=== PATIENT | female | born 1970 | race Caucasian/White ===

== ENCOUNTER 2016-10-06 12:27 | Outpatient (CLI) | payer MEDICARE | END 2016-10-06 12:28 | disposition critical access hospital (66) | LOC: EMS 12:27 | PROVIDERS: ATTEND Surgery | DX: R45.851 Suicidal ideations (principal); R46.89 Other symptoms and signs involving appearance and behavior | CPT/HCPCS: A0425; A0429 ==

== ENCOUNTER 2016-10-06 13:05 | Emergency (ER) | payer MEDICAID, MEDICARE ==
[2016-10-06] MEDS ORDERED: HALOPERIDOL 5 MG/ML VIAL IVP ONE (13:24)
[2016-10-06] MEDS ORDERED: LORazepam 2 MG/ML SYRINGE IVP STA (13:24)
[2016-10-06] MEDS ORDERED: SODIUM CHLORIDE 0.9% 1,000 ML IV ONE (13:24)
--- NOTE | 2016-10-06 13:26 | ED Physician Documentation ---
PD HPI MHE - Stated complaint Stated Complaint: SI - Chief complaint Chief Complaint: MHE - History obtained from History obtained from: Patient, EMS - History of Present Illness Primary symptom: Other (Brought in by ambulance, it seems that she has been using methamphetamines. She says that her brother is making her smoking and is cooking in their kitchen. There is a report prehospital of suicidal ideation but she denies this to me. She is quite agitated though but cooperative.) Review of Systems Ten Systems: 10 systems reviewed and negative Constitutional: denies: Fever, Chills GI: denies: Abdominal Pain, Nausea, Vomiting : denies: Dysuria, Frequency PD PAST MEDICAL HISTORY - Past Medical History Past Medical History: Yes Psych: Bipolar disorder, ADD/ADHD - Past Surgical History Past Surgical History: No Ortho: Spine surgery (cervical) - Present Medications Home Medications: Ambulatory Orders Medication Instructions Recorded Confirmed Divalproex Sodium [Divalproex 500 mg PO QPM 10/24/14 10/24/14 Sodium ER] Risperidone 1 mg PO QPM 10/24/14 10/24/14 traZODone [Desyrel] 50 mg ORAL DAILY PRN 10/24/14 10/24/14 Dextroamphetamine/Amphetamine 10 mg PO DAILY 10/06/16 10/06/16 [Adderall 10 mg Tablet] traZODone [Desyrel] 50 mg PO DAILY 10/06/16 10/06/16 - Allergies Allergies/Adverse Reactions: Allergies Allergy/AdvReac Type Severity Reaction Status Date / Time No Known Drug Allergies Allergy Unverified 10/06/16 13:10 - Social History Does the pt smoke?: Yes Smoking Status: Current every day smoker Does the pt drink ETOH?: Yes Does the pt have substance abuse?: Yes Substance Use and Type: Marijuana - Family History Family history: reports: Non contributory PD ED PE NORMAL - Vitals Vital signs reviewed: Yes - General General: Other (She seems agitated and is cooperative though but with some flight of ideas and delusions.) - HEENT HEENT: PERRL, EOMI - Neck Neck: Supple, no meningeal sign, No bony TTP - Cardiac Cardiac: RRR, No murmur - Respiratory Respiratory: No respiratory distress, Clear bilaterally - Abdomen Abdomen: Soft, Non tender - Derm Derm: Normal color, Warm and dry - Extremities Extremities: No edema, No calf tenderness / cord - Neuro Neuro: No motor deficit, No sensory deficit, Normal speech Results - Vitals Vitals: Vital Signs - 24 hr 10/06/16 10/06/16 10/06/16 13:06 14:23 15:53 Temperature 36.7 C Heart Rate 81 80 78 Respiratory 18 15 Rate Blood Pressure 132/97 H O2 Saturation 97 97 98 10/06/16 17:19 Temperature Heart Rate 75 Respiratory 14 Rate Blood Pressure 109/63 O2 Saturation 97 Oxygen O2 Source Room air - Labs Labs: Laboratory Tests 10/06/16 10/06/16 10/06/16 13:32 13:32 13:40 WBC 16.3 H RBC 3.84 L Hgb 13.1 Hct 38.3 MCV 99.7 H MCH 34.2 H MCHC 34.3 RDW 12.8 Plt Count 445 MPV 6.6 L Neut # 12.9 H Lymph # 2.1 [place] # 1.1 H Eos # 0.1 Baso # 0.1 Absolute Nucleated RBC 0.00 Nucleated RBCs 0.0 Sodium Potassium Chloride Carbon Dioxide Anion Gap BUN Creatinine Estimated GFR (MDRD) Glucose Calcium Magnesium Total Bilirubin AST ALT Alkaline Phosphatase Total Creatine Kinase Total Protein Albumin Globulin Albumin/Globulin Ratio Lipase Urine Color YELLOW Urine Clarity CLEAR Urine pH 5.5 Ur Specific [place] 1.025 Urine Protein NEGATIVE Urine Glucose (UA) NEGATIVE Urine Ketones 15 H Urine Occult Blood TRACE-INTA Urine Nitrite NEGATIVE Urine Bilirubin NEGATIVE Urine Urobilinogen 0.2 (NORMAL) Ur Leukocyte Esterase NEGATIVE Ur Microscopic Review NOT INDICATED Urine Culture Comments NOT INDICATED Urine HCG, Qual NEGATIVE Salicylates Urine Opiates Screen NEGATIVE Ur Oxycodone Screen NEGATIVE Urine Methadone Screen NEGATIVE Ur Propoxyphene Screen NEGATIVE Acetaminophen Ur Barbiturates Screen NEGATIVE Ur Tricyclics Screen NEGATIVE Ur Phencyclidine Scrn NEGATIVE Ur Amphetamine Screen NEGATIVE U Methamphetamines Scrn POSITIVE H U Benzodiazepines Scrn NEGATIVE Urine Cocaine Screen POSITIVE H U Cannabinoids Screen POSITIVE H Ethyl Alcohol 10/06/16 13:40 WBC RBC Hgb Hct MCV MCH MCHC RDW Plt Count MPV Neut # Lymph # [place] # Eos # Baso # Absolute Nucleated RBC Nucleated RBCs Sodium 138 Potassium 3.8 Chloride 105 Carbon Dioxide 23 Anion Gap 10.0 BUN 17 Creatinine 0.8 Estimated GFR (MDRD) 77 L Glucose 94 Calcium 9.3 Magnesium 2.1 Total Bilirubin 1.2 H AST 38 ALT 24 Alkaline Phosphatase 70 Total Creatine Kinase 565 H Total Protein 7.6 Albumin 4.7 Globulin 2.9 Albumin/Globulin Ratio 1.6 Lipase 28 Urine Color Urine Clarity Urine pH Ur Specific [place] Urine Protein Urine Glucose (UA) Urine Ketones Urine Occult Blood Urine Nitrite Urine Bilirubin Urine Urobilinogen Ur Leukocyte Esterase Ur Microscopic Review Urine Culture Comments Urine HCG, Qual Salicylates < 6.0 Urine Opiates Screen Ur Oxycodone Screen Urine Methadone Screen Ur Propoxyphene Screen Acetaminophen < 10 L Ur Barbiturates Screen Ur Tricyclics Screen Ur Phencyclidine Scrn Ur Amphetamine Screen U Methamphetamines Scrn U Benzodiazepines Scrn Urine Cocaine Screen U Cannabinoids Screen Ethyl Alcohol < 5.0 PD MEDICAL DECISION MAKING - ED course ED course: 46-year-old woman presents with psychosis and disorganized behavior, but there is clearly ongoing methamphetamine abuse to which she agrees. She was given some medication, Ativan and Haldol IV and slept for several hours. On awakening she was much more cogent and reasonable, continued to deny suicidal ideation. Wanted to leave. She had been seen by the social scientist and declined respite care or social detox. Departure - Departure Disposition: Against Medical Advice Clinical Impression: Methamphetamine abuse Condition: Stable
[2016-10-06] MEDS ORDERED: LORazepam 2 MG/ML SYRINGE ONE (13:44)
[2016-10-06] MEDS ORDERED: HALOPERIDOL 5 MG/ML VIAL ONE (13:45)
[2016-10-06 14:04] LABS: PH,URINE 5.5 PH (5.0-7.5)
[2016-10-06 14:06] LABS: BASOPHILS # (AUTO) 0.1 10^3/uL (0.0-0.1); BASOPHILS % (AUTO) 0.5 %; EOSINOPHILS # (AUTO) 0.1 10^3/uL (0.0-0.7); EOSINOPHILS % (AUTO) 0.7 %; HCT - HEMATOCRIT 38.3 % (37.0-47.0); HGB - HEMOGLOBIN 13.1 g/dL (12.0-16.0); LYMPHOCYTES # (AUTO) 2.1 10^3/uL (1.5-3.5); LYMPHOCYTES % (AUTO) 12.9 %; MEAN CORPUSCULAR HEMOGLOBIN 34.2 pg (27.0-31.0); MEAN CORPUSCULAR HGB CONC 34.3 g/dL (32.0-36.0); MEAN CORPUSCULAR VOLUME 99.7 fL (81.0-99.0); MEAN PLATELET VOLUME 6.6 fL (7.9-10.8); MONOCYTES # (AUTO) 1.1 10^3/uL (0.0-1.0); MONOCYTES % (AUTO) 6.9 %; NEUTROPHILS # (AUTO) 12.9 10^3/uL (1.5-6.6); RED BLOOD COUNT 3.84 10^6/uL (4.20-5.40); RED CELL DISTRIBUTION WIDTH 12.8 % (12.0-15.0); UNCORRECTED WHITE BLOOD COUNT 16.3 x10^3/uL; WHITE BLOOD COUNT 16.3 x10^3/uL (4.8-10.8)
[2016-10-06 14:15] LABS: UA CHARGE (STRIP ONLY) YES; UR CULTURE IF IND NOT INDICATED
[2016-10-06 14:16] LABS: BILIRUBIN,URINE NEGATIVE (NEGATIVE); HCG UR QUAL NEGATIVE
[2016-10-06 14:24] LABS: ALBUMIN/GLOBULIN RATIO 1.6 (1.0-2.2); BILIRUBIN,TOTAL 1.2 mg/dL (0.2-1.0); BUN - BLOOD UREA NITROGEN 17 mg/dL (6-20); CALCIUM 9.3 mg/dL (8.5-10.3); CARBON DIOXIDE - CO2 23 mmol/L (21-32); CHLORIDE 105 mmol/L (101-111); CREATININE 0.8 mg/dL (0.4-1.0); GFR - MDRD 77 (>89); GLUCOSE 94 mg/dL (70-100); LIPASE 28 U/L (22-51); MAGNESIUM 2.1 mg/dL (1.7-2.8); POTASSIUM 3.8 mmol/L (3.5-5.0); SALICYLATE < 6.0 mg/dL; SODIUM 138 mmol/L (135-145); TOTAL PROTEIN 7.6 g/dL (6.7-8.2)
[2016-10-06 14:25] LABS: ACETAMINOPHEN < 10 ug/mL (10-30)
[2016-10-06 17:21] VITALS: BP 109/63
== END 2016-10-06 18:22 | disposition left against medical advice (07) ==
LOC: EDUNIT# → ED 13:05
DX: F15.10 Other stimulant abuse, uncomplicated (principal); F17.200 Nicotine dependence, unspecified, uncomplicated; F31.9 Bipolar disorder, unspecified; F90.9 Attention-deficit hyperactivity disorder, unspecified type
CPT/HCPCS: 36415; 80053; 80306; 80307; 81003; 81025; 82550; 83690; 83735; 85025; 96374; 96375; 99283; 99284; G0480; J2060; 80320; 80329; 81001; 87086

== ENCOUNTER 2019-11-07 23:49 | Emergency (ER) | payer MEDICARE ==
--- NOTE | 2019-11-07 23:53 | ED Physician Documentation ---
PD HPI MHE - Stated complaint Stated Complaint: MHE - History obtained from History obtained from: Patient (unable to provide useful or reliable contribution to HPI/ROS due to odd behavior) - History of Present Illness Primary symptom: Aggressive behavior Timing - onset: Unknown Similar symptoms before: Diagnosis ([facility] records indicate previous [facility] ED visits with similar presentation; outcome of ED visit has included T+R as well as transfer to inpatient mental health facility) - Additional information Additional information: brought in by police. Patient is rambling and exhibits odd behavior and affect, at times angry and loud; she tells me she was walking home from someone's house, got lost and suddenly there were cars coming at her. She says the police were then there arresting her. It took several minutes for her to communicate this information to me, as she was including odd, extensive, superfluous details such as spelling people's names, telling me specific street addresses. She includes profanity and racial slurs in what is a particularly long, run-on sentence that only stopped when I interrupted her. Per police, there were 911 calls reporting someone was jumping in front of cars on [facility] [facility]. The officer says that when he drove to the scene, the patient jumped in front of his car as well. She arrives in handcuffs to ED. Review of Systems Unable to obtain: [place] PD PAST MEDICAL HISTORY - Past Medical History Past Medical History: Yes Psych: Bipolar disorder, ADD/ADHD - Past Surgical History Past Surgical History: No Ortho: Spine surgery (cervical) - Present Medications Home Medications: Ambulatory Orders Medication Instructions Recorded Confirmed Divalproex Sodium [Divalproex 500 mg PO QPM 10/24/14 10/24/14 Sodium ER] risperiDONE [Risperidone] 1 mg PO QPM 10/24/14 10/24/14 traZODone [Desyrel] 50 mg ORAL DAILY PRN 10/24/14 10/24/14 Dextroamphetamine/Amphetamine 10 mg PO DAILY 10/06/16 10/06/16 [Adderall 10 mg Tablet] traZODone [Desyrel] 50 mg PO DAILY 10/06/16 10/06/16 - Allergies Allergies/Adverse Reactions: Allergies Allergy/AdvReac Type Severity Reaction Status Date / Time No Known Drug Allergies Allergy Unverified 10/06/16 13:10 - Social History Does the pt smoke?: Yes Smoking Status: Current every day smoker Does the pt drink ETOH?: Yes Does the pt have substance abuse?: Yes Substance Use and Type: Other (UDS on previous visit include negative UDS, as well as UDS positive for cocaine, methamphetamines, and cannabinoids. she denies using drugs tonight when I ask) PD ED PE NORMAL - Vitals Vital signs reviewed: Yes - General General: Well developed/nourished, Other (unable to ascertain orientation answers due to odd, rambling answers) - HEENT HEENT: Atraumatic, PERRL, EOMI - Cardiac Cardiac: No murmur - Respiratory Respiratory: No respiratory distress, Clear bilaterally - Abdomen Abdomen: Soft, Non tender - Derm Derm: Normal color, Warm and dry PD ED PE EXPANDED - General General: Alert, No acute distress - Cardiac Cardiac: Tachy, Regular Rhythm - Psych Psych: Agitated (agitated at times during exam, and at one point she is trying to get her handcuffed wrists under her feet so as to bring her wrists in front of her. ), Pressured speech Results - Vitals Vitals: Vital Signs - 24 hr 11/07/19 23:52 Temperature 36.8 C Heart Rate 107 H Respiratory 24 Rate Blood Pressure 141/99 H O2 Saturation 98 Oxygen O2 Source Room air - Labs Labs: Laboratory Tests 11/07/19 11/08/19 11/08/19 23:53 00:23 00:33 WBC 12.2 H RBC 3.79 L Hgb 13.3 Hct 38.0 MCV 100.3 H MCH 35.1 H MCHC 35.0 RDW 12.6 Plt Count 401 MPV 8.7 Neut # (Auto) 8.4 H Lymph # (Auto) 2.5 [place] # (Auto) 1.0 Eos # (Auto) 0.1 Baso # (Auto) 0.1 Absolute Nucleated RBC 0.00 Nucleated RBC % 0.0 Sodium Potassium Chloride Carbon Dioxide Anion Gap BUN Creatinine Estimated GFR (MDRD) Glucose POC Whole Bld Glucose 119 H Calcium Total Bilirubin AST ALT Alkaline Phosphatase Total Protein Albumin Globulin Albumin/Globulin Ratio Lipase Salicylates Urine Opiates Screen NEGATIVE Ur Oxycodone Screen NEGATIVE Urine Methadone Screen NEGATIVE Ur Propoxyphene Screen NEGATIVE Acetaminophen Ur Barbiturates Screen NEGATIVE Ur Tricyclics Screen NEGATIVE Ur Phencyclidine Scrn NEGATIVE Ur Amphetamine Screen NEGATIVE U Methamphetamines Scrn NEGATIVE U Benzodiazepines Scrn NEGATIVE Urine Cocaine Screen NEGATIVE U Cannabinoids Screen POSITIVE H Ethyl Alcohol 11/08/19 00:33 WBC RBC Hgb Hct MCV MCH MCHC RDW Plt Count MPV Neut # (Auto) Lymph # (Auto) [place] # (Auto) Eos # (Auto) Baso # (Auto) Absolute Nucleated RBC Nucleated RBC % Sodium 136 Potassium 3.4 L Chloride 102 Carbon Dioxide 23 Anion Gap 11.0 BUN 21 H Creatinine 0.9 Estimated GFR (MDRD) 66 L Glucose 119 H POC Whole Bld Glucose Calcium 9.6 Total Bilirubin 0.6 AST 72 H ALT 35 Alkaline Phosphatase 68 Total Protein 7.5 Albumin 4.4 Globulin 3.1 Albumin/Globulin Ratio 1.4 Lipase 32 Salicylates < 6.0 Urine Opiates Screen Ur Oxycodone Screen Urine Methadone Screen Ur Propoxyphene Screen Acetaminophen < 10 L Ur Barbiturates Screen Ur Tricyclics Screen Ur Phencyclidine Scrn Ur Amphetamine Screen U Methamphetamines Scrn U Benzodiazepines Scrn Urine Cocaine Screen U Cannabinoids Screen Ethyl Alcohol < 5.0 PD MEDICAL DECISION MAKING - ED course Complexity details: reviewed old records, reviewed results, re-evaluated patient, considered differential, d/w patient ED course: Despite odd behavior and, at times, yelling and cursing at [employer] coxswain, patient otherwise cooperates, allowing blood to be drawn, providing a urine samp le, and taking PO zyprexa. She slept subsequent to the zyprexa, and held overnight for reassessment when awake, likely SW consult. Care of patient signed out to Dr. Burnette
[2019-11-08] MEDS: OLANZapine ODT 5 MG TABLET TL STA ×2 (00:14→12:07)
[2019-11-08 00:31] LABS: MUDS CUTOFF CONCENTRATIONS CUTOFF CONC BELOW:
[2019-11-08 00:38] LABS: BASOPHILS # (AUTO) 0.1 10^3/uL (0.0-0.1); BASOPHILS % (AUTO) 0.8 %; EOSINOPHILS # (AUTO) 0.1 10^3/uL (0.0-0.7); EOSINOPHILS % (AUTO) 0.8 %; HGB - HEMOGLOBIN 13.3 g/dL (12.0-16.0); LYMPHOCYTES # (AUTO) 2.5 10^3/uL (1.5-3.5); LYMPHOCYTES % (AUTO) 20.7 %; MEAN CORPUSCULAR HEMOGLOBIN 35.1 pg (27.0-31.0); MEAN CORPUSCULAR VOLUME 100.3 fL (81.0-99.0); MEAN PLATELET VOLUME 8.7 fL (7.9-10.8); MONOCYTES % (AUTO) 8.4 %; NEUTROPHILS # (AUTO) 8.4 10^3/uL (1.5-6.6); NEUTROPHILS % (AUTO) 68.9 %; PLT - PLATELET COUNT 401 10^3/uL (130-450); RED BLOOD COUNT 3.79 10^6/uL (4.20-5.40); RED CELL DISTRIBUTION WIDTH 12.6 % (12.0-15.0); WHITE BLOOD COUNT 12.2 x10^3/uL (4.8-10.8)
[2019-11-08 00:45] LABS: AMPHETAMINE SCREEN,URINE NEGATIVE (NEGATIVE); BENZODIAZEPINES SCREEN, URINE NEGATIVE (NEGATIVE); COCAINE SCREEN URINE NEGATIVE (NEGATIVE); METHADONE SCREEN, URINE NEGATIVE (NEGATIVE); METHAMPHETAMINES SCREEN, URINE NEGATIVE (NEGATIVE); OPIATE SCREEN, URINE NEGATIVE (NEGATIVE); OXYCODONE SCREEN, URINE NEGATIVE (NEGATIVE); PROPOXYPHENE SCREEN, URINE NEGATIVE (NEGATIVE); TRICYCLIC ANTIDEPRESSANT,URINE NEGATIVE (NEGATIVE)
[2019-11-08 00:53] LABS: ACETAMINOPHEN < 10 ug/mL (10-30); ALBUMIN 4.4 g/dL (3.2-5.5); ALBUMIN/GLOBULIN RATIO 1.4 (1.0-2.2); ALKALINE PHOSPHATASE 68 IU/L (42-121); ALT ALANINE AMINOTRANSFERASE 35 IU/L (10-60); AST ASPARTATE AMINOTRANSFERASE 72 IU/L (10-42); BILIRUBIN,TOTAL 0.6 mg/dL (0.2-1.0); BUN - BLOOD UREA NITROGEN 21 mg/dL (6-20); CALCIUM 9.6 mg/dL (8.5-10.3); CARBON DIOXIDE - CO2 23 mmol/L (21-32); CHLORIDE 102 mmol/L (101-111); CREATININE 0.9 mg/dL (0.4-1.0); GLUCOSE 119 mg/dL (70-100); LIPASE 32 U/L (22-51); SALICYLATE < 6.0 mg/dL; SODIUM 136 mmol/L (135-145); TOTAL PROTEIN 7.5 g/dL (6.7-8.2)
--- NOTE | 2019-11-08 09:30 | ED Physician Documentation ---
ED Addendum - Addendum Addendum: 11/08/19 09:28 Patient came out of her room, screaming stating that she wants her "fucking line dancer". She states that she was arrested by Nazis last night. She states that she wants us to call [facility] and talk to [place]. She is running up and down the hallways, screaming at the nurses and at other patients. Patient was eventually crawled back into her room. [facility] was contacted for [facility] dispatch. [facility] states that if we give her any medication they will refuse to dispatch the DCR. Discussed the case with DCR, Margarita she will place the patient on an involuntary hold. Patient medicated with 10 mg of Zyprexa. I also spoke with the patient's daughter, she states that these episodes do occur every few years but paranoia remains even in between the episodes. Apparently the patient spent approximately 45 days at [facility] approximately 3 years ago. Patient was accepted to [facility], Dr. Breana Juarez at approximately 1440. COBRA forms completed. Patient will be transferred for further care. Question bipolar with gloria versus schizoaffective versus schizophrenia? Results - Vitals Vitals: Vital Signs - 24 hr 11/07/19 11/08/19 23:52 07:57 Temperature 36.8 C Heart Rate 107 H 99 Respiratory 24 20 Rate Blood Pressure 141/99 H 138/89 H O2 Saturation 98 98 Oxygen O2 Source Room air - EKG (time done) 1222 Rate: Rate (enter#) (64) Rhythm: NSR [place]: Normal Intervals: Normal PA QRS: Normal Ischemia: Normal ST segments - Labs Labs: Laboratory Tests 11/07/19 11/08/19 11/08/19 23:53 00:23 00:33 WBC 12.2 H RBC 3.79 L Hgb 13.3 Hct 38.0 MCV 100.3 H MCH 35.1 H MCHC 35.0 RDW 12.6 Plt Count 401 MPV 8.7 Neut # (Auto) 8.4 H Lymph # (Auto) 2.5 [place] # (Auto) 1.0 Eos # (Auto) 0.1 Baso # (Auto) 0.1 Absolute Nucleated RBC 0.00 Nucleated RBC % 0.0 Sodium Potassium Chloride Carbon Dioxide Anion Gap BUN Creatinine Estimated GFR (MDRD) Glucose POC Whole Bld Glucose 119 H Calcium Total Bilirubin AST ALT Alkaline Phosphatase Total Protein Albumin Globulin Albumin/Globulin Ratio Lipase Salicylates Urine Opiates Screen NEGATIVE Ur Oxycodone Screen NEGATIVE Urine Methadone Screen NEGATIVE Ur Propoxyphene Screen NEGATIVE Acetaminophen Ur Barbiturates Screen NEGATIVE Ur Tricyclics Screen NEGATIVE Ur Phencyclidine Scrn NEGATIVE Ur Amphetamine Screen NEGATIVE U Methamphetamines Scrn NEGATIVE U Benzodiazepines Scrn NEGATIVE Urine Cocaine Screen NEGATIVE U Cannabinoids Screen POSITIVE H Ethyl Alcohol 11/08/19 00:33 WBC RBC Hgb Hct MCV MCH MCHC RDW Plt Count MPV Neut # (Auto) Lymph # (Auto) [place] # (Auto) Eos # (Auto) Baso # (Auto) Absolute Nucleated RBC Nucleated RBC % Sodium 136 Potassium 3.4 L Chloride 102 Carbon Dioxide 23 Anion Gap 11.0 BUN 21 H Creatinine 0.9 Estimated GFR (MDRD) 66 L Glucose 119 H POC Whole Bld Glucose Calcium 9.6 Total Bilirubin 0.6 AST 72 H ALT 35 Alkaline Phosphatase 68 Total Protein 7.5 Albumin 4.4 Globulin 3.1 Albumin/Globulin Ratio 1.4 Lipase 32 Salicylates < 6.0 Urine Opiates Screen Ur Oxycodone Screen Urine Methadone Screen Ur Propoxyphene Screen Acetaminophen < 10 L Ur Barbiturates Screen Ur Tricyclics Screen Ur Phencyclidine Scrn Ur Amphetamine Screen U Methamphetamines Scrn U Benzodiazepines Scrn Urine Cocaine Screen U Cannabinoids Screen Ethyl Alcohol < 5.0 Departure - Departure Disposition: 65 Psych Hosp/Unit DC/Xfer Clinical Impression: Manic behavior Psychosis Qualifiers: Psychosis type: unspecified psychosis type Qualified Code(s): F29 - Unspecified psychosis not due to a substance or known physiological condition Condition: Stable
[2019-11-08] MEDS: OLANZapine 10 MG VIAL IM STA (12:08)
[2019-11-08] MEDS: HALOPERIDOL 5 MG/ML VIAL IM STA ×2 (14:28→17:13)
[2019-11-08 14:38] LABS: HCG UR QUAL NEGATIVE
[2019-11-08 17:06] VITALS: BP 116/84
== END 2019-11-08 19:45 ==
LOC: ED 23:49
DX: F30.2 Manic episode, severe with psychotic symptoms (principal); F17.200 Nicotine dependence, unspecified, uncomplicated
CPT/HCPCS: 36415; 80053; 81025; 83690; 85025; 93005; 96372; 99281; 99285; A9270; 80306; 80307; 80320; 80329; 81001; 81003; 87086

== ENCOUNTER 2019-12-06 18:12 | Emergency (ER) | payer MEDICARE ==
[2019-12-06 18:17] VITALS: BP 152/113
--- NOTE | 2019-12-06 18:31 | ED Physician Documentation ---
History of Present Illness - Stated complaint Stated Complaint: MHE - Chief complaint Chief Complaint: MHE - History obtained from History obtained from: Patient, Police - History of Present Illness Timing: Today Pain level max: 0 Pain level now: 0 - Additonal information Additional information: pt maria elena in by police for "medical clearance for long-term.". Patient has no complaints. Has a history of psychosis. She states she is not taking any medications at home. She refuses all blood work. She denies any illnesses or injuries. She refuses any further care at this time. She did allow us to take vital signs however. 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 : None HEENT: None Psych: Bipolar disorder, ADD/ADHD Musculoskeletal: None Derm: None - Past Surgical History Past Surgical History: No Ortho: Spine surgery - Allergies Allergies/Adverse Reactions: Allergies Allergy/AdvReac Type Severity Reaction Status Date / Time No Known Drug Allergies Allergy Verified 12/06/19 18:17 - Social History Does the pt smoke?: Yes Smoking Status: Current every day smoker Does the pt drink ETOH?: Yes Does the pt have substance abuse?: Yes - POLST Patient has POLST: No PD ED PE NORMAL - Vitals Vital signs reviewed: Yes - General General: Alert and oriented X 3, No acute distress, Other (Patient is alert and oriented, though screaming at times. She does know who she is and where she is.) - HEENT HEENT: Atraumatic, PERRL, Moist mucous membranes, Pharynx benign - Neck Neck: Supple, no meningeal sign - Cardiac Cardiac: RRR - Respiratory Respiratory: No respiratory distress, Clear bilaterally - Abdomen Abdomen: Soft, Non tender, Non distended - Derm Derm: Warm and dry - Extremities Extremities: Normal ROM s pain, No edema - Neuro Neuro: Other (Alert, oriented to person and place.) - Free text exam Free text exam: Patient is very agitated. She states she has being stalked by the [place] police. She states that they are coming to her home and harassing her. She denies any drug use other than cannabinoids. States she is not on any medications. Her speech is clear and coherent, though delusional. She states that her mother is actually Olive Naeem and that Olive Hartley's other name is Clarissa Kimasis. Results - Vitals Vitals: Vital Signs - 24 hr 12/06/19 18:14 Temperature 36.8 C Heart Rate 100 Respiratory 12 Rate Blood Pressure 152/113 H O2 Saturation 98 Oxygen O2 Source Room air PD MEDICAL DECISION MAKING - ED course Complexity details: considered differential, d/w patient, d/w workday consultant ED course: After discussion with the police and the nurse practitioner at the long-term, the patient will be sent to long-term and the DCR will evaluate her there. If they decide to place her on an involuntary hold, we will obtain blood work at that time. Currently she is refusing any blood work. Patient has no fever. No signs of sepsis. She states she does not take any medications. She will answer questions, but is agitated. This document was made in part using voice recognition software. While efforts are made to proofread this document, sound alike and grammatical errors may occur. Departure - Departure Disposition: 01 Home, Self Care Clinical Impression: Manic behavior Psychosis Qualifiers: Psychosis type: unspecified psychosis type Qualified Code(s): F29 - Unspecified psychosis not due to a substance or known physiological condition Condition: Stable Instructions: ED Psychosis Comments: Recommended DCR evaluation while in long-term. May return to the ER if detained for lab work. Patient currently refuses. Discussed with Cindy Charles. Discharge Date/Time: 12/06/19 18:37
== END 2019-12-06 18:37 | disposition home or self-care (01) ==
LOC: EDUNIT# → ED 18:12
DX: F30.2 Manic episode, severe with psychotic symptoms (principal); F17.200 Nicotine dependence, unspecified, uncomplicated
CPT/HCPCS: 99281

== ENCOUNTER 2019-12-09 07:17 | Emergency (ER) | payer MEDICARE, OTHER ==
--- NOTE | 2019-12-09 07:30 | ED Physician Documentation ---
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 Reportedly was going on to a neighbor's property and yelling at him. Review of Systems Ten Systems: 10 systems reviewed and negative Constitutional: reports: Reviewed and negative Eyes: reports: Reviewed and negative Ears: reports: Reviewed and negative Nose: reports: Reviewed and negative Throat: reports: Reviewed and negative Cardiac: reports: Reviewed and negative Respiratory: reports: Reviewed and negative PD PAST MEDICAL HISTORY - Past Medical History Cardiovascular: None Respiratory: None Neuro: None Endocrine/Autoimmune: None GI: None DEVULCANIZER HEAD: None : None HEENT: None Psych: Bipolar disorder, ADD/ADHD Musculoskeletal: None Derm: None - Past Surgical History Past Surgical History: No Ortho: Spine surgery - Allergies Allergies/Adverse Reactions: Allergies Allergy/AdvReac Type Severity Reaction Status Date / Time prednisone Allergy Unknown Verified 12/09/19 07:30 - Social History Does the pt smoke?: Yes Smoking Status: Current every day smoker Does the pt drink ETOH?: Yes Does the pt have substance abuse?: Yes - POLST Patient has POLST: No PD ED PE NORMAL - Vitals Vital signs reviewed: Yes - General General: Alert and oriented X 3, No acute distress - HEENT HEENT: PERRL, EOMI - Neck Neck: Supple, no meningeal sign, No bony TTP - Cardiac Cardiac: RRR, No murmur - Respiratory Respiratory: No respiratory distress, Clear bilaterally - Abdomen Abdomen: Normal bowel sounds, Soft, Non tender - Back Back: No CVA TTP, No spinal TTP - Derm Derm: Normal color, Warm and dry - Extremities Extremities: No edema, No calf tenderness / cord - Neuro Neuro: Alert and oriented X 3, Normal speech - Psych Psych: Other (She is a quite tangential historian, grandiose as well. She says that her mother is Savana Bynum, and claims multiple other celebrity family members and contacts. She is manic and hypervigilant.) Results - Vitals Vitals: Vital Signs - 24 hr 12/09/19 12/09/19 12/09/19 07:25 10:32 15:53 Temperature 36.6 C 36.9 C 36.8 C Heart Rate 72 82 70 Respiratory 20 16 14 Rate Blood Pressure 128/70 116/89 H 100/76 O2 Saturation 99 99 99 Oxygen O2 Source Room air - EKG (time done) 0845 Rate: Rate (enter#) (64) Rhythm: NSR [place]: Normal Intervals: Other (IVCD) QRS: LVH (borderline) Ischemia: Normal ST segments. No: ST elevation c/w ischemia, ST depression Computer interpretation: Agree with computer - Labs Labs: Laboratory Tests 12/09/19 12/09/19 12/09/19 07:15 07:15 07:15 WBC 5.6 RBC 3.98 L Hgb 13.4 Hct 40.4 MCV 101.5 H MCH 33.7 H MCHC 33.2 RDW 12.1 Plt Count 339 MPV 9.0 Neut # (Auto) 3.2 Lymph # (Auto) 1.7 [place] # (Auto) 0.6 Eos # (Auto) 0.1 Baso # (Auto) 0.1 Absolute Nucleated RBC 0.00 Nucleated RBC % 0.0 Sodium 141 Potassium 3.4 L Chloride 105 Carbon Dioxide 28 Anion Gap 8.0 BUN 15 Creatinine 0.7 Estimated GFR (MDRD) 89 Glucose 122 H Calcium 9.1 Total Bilirubin 0.6 AST 23 ALT 20 Alkaline Phosphatase 62 Total Protein 6.5 L Albumin 4.0 Globulin 2.5 Albumin/Globulin Ratio 1.6 Lipase 41 TSH 3.14 Urine Color Urine Clarity Urine pH Ur Specific Avenue Urine Protein Urine Glucose (UA) Urine Ketones Urine Occult Blood Urine Nitrite Urine Bilirubin Urine Urobilinogen Ur Leukocyte Esterase Ur Microscopic Review Urine Culture Comments Salicylates < 6.0 Urine Opiates Screen Ur Oxycodone Screen Urine Methadone Screen Ur Propoxyphene Screen Acetaminophen < 10 L Ur Barbiturates Screen Ur Tricyclics Screen Ur Phencyclidine Scrn Ur Amphetamine Screen U Methamphetamines Scrn U Benzodiazepines Scrn Urine Cocaine Screen U Cannabinoids Screen Ethyl Alcohol < 5.0 12/09/19 07:30 WBC RBC Hgb Hct MCV MCH MCHC RDW Plt Count MPV Neut # (Auto) Lymph # (Auto) [place] # (Auto) Eos # (Auto) Baso # (Auto) Absolute Nucleated RBC Nucleated RBC % Sodium Potassium Chloride Carbon Dioxide Anion Gap BUN Creatinine Estimated GFR (MDRD) Glucose Calcium Total Bilirubin AST ALT Alkaline Phosphatase Total Protein Albumin Globulin Albumin/Globulin Ratio Lipase TSH Urine Color YELLOW Urine Clarity CLEAR Urine pH 6.[address] 1.025 Urine Protein NEGATIVE Urine Glucose (UA) NEGATIVE Urine Ketones NEGATIVE Urine Occult Blood TRACE-INTA Urine Nitrite NEGATIVE Urine Bilirubin NEGATIVE Urine Urobilinogen 1 (NORMAL) Ur Leukocyte Esterase NEGATIVE Ur Microscopic Review NOT INDICATED Urine Culture Comments NOT INDICATED Salicylates Urine Opiates Screen NEGATIVE Ur Oxycodone Screen NEGATIVE Urine Methadone Screen NEGATIVE Ur Propoxyphene Screen NEGATIVE Acetaminophen Ur Barbiturates Screen NEGATIVE Ur Tricyclics Screen NEGATIVE Ur Phencyclidine Scrn NEGATIVE Ur Amphetamine Screen NEGATIVE U Methamphetamines Scrn NEGATIVE U Benzodiazepines Scrn NEGATIVE Urine Cocaine Screen NEGATIVE U Cannabinoids Screen POSITIVE H Ethyl Alcohol PD MEDICAL DECISION MAKING - ED course ED course: 49-year-old woman presents for mental health evaluation. She is manic. The DCR accompanied her in and PHANI Gray turned the case over DCR Margarita. Bed was potentially available at [facility] but they deferred pending potassium supplementation and repeat check despite the fact that it was only 3.4. Patient subsequently refused said potassium supplementation but repeat BMP will be done anyway. Care to Overnight ED provider pending dispo. Departure - Departure Clinical Impression: Manic behavior Psychosis Qualifiers: Schizoaffective disorder type: bipolar Condition: Stable
[2019-12-09 07:37] LABS: MUDS CUTOFF CONCENTRATIONS CUTOFF CONC BELOW:
[2019-12-09 07:39] LABS: BILIRUBIN,URINE NEGATIVE (NEGATIVE); GLUCOSE, URINE (UA) NEGATIVE (NEGATIVE); KETONES,URINE (UA) NEGATIVE (NEGATIVE); LEUKOCYTE ESTERASE, URINE NEGATIVE (NEGATIVE); NITRITE,URINE NEGATIVE (NEGATIVE); OCCULT BLOOD,URINE TRACE-INTA (NEGATIVE); PROTEIN,URINE NEGATIVE (NEGATIVE); UROBILINOGEN,URINE 1 (NORMAL) E.U./dL (NORMAL)
[2019-12-09 07:52] LABS: AMPHETAMINE SCREEN,URINE NEGATIVE (NEGATIVE); BENZODIAZEPINES SCREEN, URINE NEGATIVE (NEGATIVE); CLARITY,URINE CLEAR (CLEAR); COCAINE SCREEN URINE NEGATIVE (NEGATIVE); METHAMPHETAMINES SCREEN, URINE NEGATIVE (NEGATIVE); OPIATE SCREEN, URINE NEGATIVE (NEGATIVE)
[2019-12-09 07:53] LABS: METHADONE SCREEN, URINE NEGATIVE (NEGATIVE); OXYCODONE SCREEN, URINE NEGATIVE (NEGATIVE); PROPOXYPHENE SCREEN, URINE NEGATIVE (NEGATIVE); TRICYCLIC ANTIDEPRESSANT,URINE NEGATIVE (NEGATIVE)
[2019-12-09 07:56] LABS: ACETAMINOPHEN < 10 ug/mL (10-30); ALBUMIN/GLOBULIN RATIO 1.6 (1.0-2.2); ALKALINE PHOSPHATASE 62 IU/L (42-121); ALT ALANINE AMINOTRANSFERASE 20 IU/L (10-60); AST ASPARTATE AMINOTRANSFERASE 23 IU/L (10-42); BILIRUBIN,TOTAL 0.6 mg/dL (0.2-1.0); BUN - BLOOD UREA NITROGEN 15 mg/dL (6-20); CALCIUM 9.1 mg/dL (8.5-10.3); CARBON DIOXIDE - CO2 28 mmol/L (21-32); CHLORIDE 105 mmol/L (101-111); CREATININE 0.7 mg/dL (0.4-1.0); GLUCOSE 122 mg/dL (70-100); LIPASE 41 U/L (22-51); SALICYLATE < 6.0 mg/dL; SODIUM 141 mmol/L (135-145); TOTAL PROTEIN 6.5 g/dL (6.7-8.2)
[2019-12-09 08:16] LABS: BASOPHILS # (AUTO) 0.1 10^3/uL (0.0-0.1); BASOPHILS % (AUTO) 0.9 %; EOSINOPHILS # (AUTO) 0.1 10^3/uL (0.0-0.7); EOSINOPHILS % (AUTO) 2.3 %; HGB - HEMOGLOBIN 13.4 g/dL (12.0-16.0); LYMPHOCYTES # (AUTO) 1.7 10^3/uL (1.5-3.5); LYMPHOCYTES % (AUTO) 29.5 %; MEAN CORPUSCULAR HEMOGLOBIN 33.7 pg (27.0-31.0); MEAN CORPUSCULAR HGB CONC 33.2 g/dL (32.0-36.0); MEAN CORPUSCULAR VOLUME 101.5 fL (81.0-99.0); MONOCYTES # (AUTO) 0.6 10^3/uL (0.0-1.0); MONOCYTES % (AUTO) 9.8 %; NEUTROPHILS # (AUTO) 3.2 10^3/uL (1.5-6.6); NEUTROPHILS % (AUTO) 56.4 %; PLT - PLATELET COUNT 339 10^3/uL (130-450); RED BLOOD COUNT 3.98 10^6/uL (4.20-5.40); RED CELL DISTRIBUTION WIDTH 12.1 % (12.0-15.0); WHITE BLOOD COUNT 5.6 x10^3/uL (4.8-10.8)
[2019-12-09] MEDS ORDERED: OLANZapine ODT 5 MG TABLET TL STA (13:51)
[2019-12-09 15:54] VITALS: BP 100/76
[2019-12-09] MEDS ORDERED: POTASSIUM CHLORIDE 20 MEQ TABLET PO STA (17:05)
--- NOTE | 2019-12-09 21:53 | ED Physician Documentation ---
History of Present Illness - Stated complaint Stated Complaint: MHE - Chief complaint Chief Complaint: MHE - History obtained from History obtained from: Patient - Additonal information Additional information: This patient was signed out to me at shift change by Dr. Jean. Please see his complete history and physical as well as the note from the designated mental health provider as well. Review of Systems Ten Systems: 10 systems reviewed and negative Constitutional: reports: Reviewed and negative Eyes: reports: Reviewed and negative Ears: reports: Reviewed and negative Nose: reports: Reviewed and negative Throat: reports: Reviewed and negative Cardiac: reports: Reviewed and negative Respiratory: reports: Reviewed and negative GI: reports: Reviewed and negative : reports: Reviewed and negative Skin: reports: Reviewed and negative Musculoskeletal: reports: Reviewed and negative Neurologic: reports: Reviewed and negative Psychiatric: reports: Reviewed and negative Endocrine: reports: Reviewed and negative Immunocompromised: reports: Reviewed and negative PD PAST MEDICAL HISTORY - Past Medical History Past Medical History: Yes Cardiovascular: None Respiratory: None Neuro: None Endocrine/Autoimmune: None GI: None GROUP HOME SUPERVISOR: None : None HEENT: None Psych: Bipolar disorder, ADD/ADHD Musculoskeletal: None Derm: None - Past Surgical History Past Surgical History: No General: Other Ortho: Spine surgery - Allergies Allergies/Adverse Reactions: Allergies Allergy/AdvReac Type Severity Reaction Status Date / Time prednisone Allergy Unknown Verified 12/09/19 07:30 - Social History Does the pt smoke?: Yes Smoking Status: Current every day smoker Does the pt drink ETOH?: Yes Does the pt have substance abuse?: Yes - POLST Patient has POLST: No PD ED PE NORMAL - Vitals Vital signs reviewed: Yes - General General: Alert and oriented X 3, No acute distress - HEENT HEENT: PERRL - Neck Neck: Supple, no meningeal sign - Cardiac Cardiac: RRR, No murmur - Respiratory Respiratory: Clear bilaterally - Abdomen Abdomen: Normal bowel sounds, Soft, Non tender, Non distended - Derm Derm: Warm and dry - Extremities Extremities: No deformity - Neuro Neuro: Alert and oriented X 3 - Psych Psych: Normal mood, Normal affect Results - Vitals Vitals: Vital Signs - 24 hr 12/09/19 12/09/19 12/09/19 07:25 10:32 15:53 Temperature 36.6 C 36.9 C 36.8 C Heart Rate 72 82 70 Respiratory 20 16 14 Rate Blood Pressure 128/70 116/89 H 100/76 O2 Saturation 99 99 99 Oxygen O2 Source Room air - Labs Labs: Laboratory Tests 12/09/19 12/09/19 12/09/19 07:15 07:15 07:15 WBC 5.6 RBC 3.98 L Hgb 13.4 Hct 40.4 MCV 101.5 H MCH 33.7 H MCHC 33.2 RDW 12.1 Plt Count 339 MPV 9.0 Neut # (Auto) 3.2 Lymph # (Auto) 1.7 [place] # (Auto) 0.6 Eos # (Auto) 0.1 Baso # (Auto) 0.1 Absolute Nucleated RBC 0.00 Nucleated RBC % 0.0 Sodium 141 Potassium 3.4 L Chloride 105 Carbon Dioxide 28 Anion Gap 8.0 BUN 15 Creatinine 0.7 Estimated GFR (MDRD) 89 Glucose 122 H Calcium 9.1 Total Bilirubin 0.6 AST 23 ALT 20 Alkaline Phosphatase 62 Total Protein 6.5 L Albumin 4.0 Globulin 2.5 Albumin/Globulin Ratio 1.6 Lipase 41 TSH 3.14 Urine Color Urine Clarity Urine pH Ur Specific [place] Urine Protein Urine Glucose (UA) Urine Ketones Urine Occult Blood Urine Nitrite Urine Bilirubin Urine Urobilinogen Ur Leukocyte Esterase Ur Microscopic Review Urine Culture Comments Salicylates < 6.0 Urine Opiates Screen Ur Oxycodone Screen Urine Methadone Screen Ur Propoxyphene Screen Acetaminophen < 10 L Ur Barbiturates Screen Ur Tricyclics Screen Ur Phencyclidine Scrn Ur Amphetamine Screen U Methamphetamines Scrn U Benzodiazepines Scrn Urine Cocaine Screen U Cannabinoids Screen Ethyl Alcohol < 5.0 12/09/19 07:30 WBC RBC Hgb Hct MCV MCH MCHC RDW Plt Count MPV Neut # (Auto) Lymph # (Auto) [place] # (Auto) Eos # (Auto) Baso # (Auto) Absolute Nucleated RBC Nucleated RBC % Sodium Potassium Chloride Carbon Dioxide Anion Gap BUN Creatinine Estimated GFR (MDRD) Glucose Calcium Total Bilirubin AST ALT Alkaline Phosphatase Total Protein Albumin Globulin Albumin/Globulin Ratio Lipase TSH Urine Color YELLOW Urine Clarity CLEAR Urine pH 6.0 Ur Specific [place] 1.025 Urine Protein NEGATIVE Urine Glucose (UA) NEGATIVE Urine Ketones NEGATIVE Urine Occult Blood TRACE-INTA Urine Nitrite NEGATIVE Urine Bilirubin NEGATIVE Urine Urobilinogen 1 (NORMAL) Ur Leukocyte Esterase NEGATIVE Ur Microscopic Review NOT INDICATED Urine Culture Comments NOT INDICATED Salicylates Urine Opiates Screen NEGATIVE Ur Oxycodone Screen NEGATIVE Urine Methadone Screen NEGATIVE Ur Propoxyphene Screen NEGATIVE Acetaminophen Ur Barbiturates Screen NEGATIVE Ur Tricyclics Screen NEGATIVE Ur Phencyclidine Scrn NEGATIVE Ur Amphetamine Screen NEGATIVE U Methamphetamines Scrn NEGATIVE U Benzodiazepines Scrn NEGATIVE Urine Cocaine Screen NEGATIVE U Cannabinoids Screen POSITIVE H Ethyl Alcohol PD MEDICAL DECISION MAKING - ED course Complexity details: other (Patient has what appears to be bipolar schizophrenia she has medical decision-making capability and capacity denies any homicidal or suicidal threats or ideology. Given the fact that she has medical decision- making capability capacity she like to leave AGAINST MEDICAL ADVICE.) ED course: Patient signed out to me at shift change by Dr. Jean. Patient's been here over 14 hours she was originally to be detained by the designated mental health provider however the [facility] is reevaluated her and determined that she is Not to be detained involuntarily. The patient was reexamined by myself she does have medical decision-making capability and capacity she has no homicidal or suicidal ideation threats and would like to sign AGAINST MEDICAL ADVICE to be discharged home. Departure - Departure Disposition: 07 Against Medical Advice Clinical Impression: Manic behavior Psychosis Qualifiers: Schizoaffective disorder type: bipolar Condition: Stable Discharge Date/Time: 12/09/19 22:01
== END 2019-12-09 22:01 | disposition left against medical advice (07) ==
LOC: ED 07:17
DX: F31.9 Bipolar disorder, unspecified (principal); F17.200 Nicotine dependence, unspecified, uncomplicated
CPT/HCPCS: 36415; 80053; 81003; 83690; 84443; 85025; 93005; 99283; U0004; 80306; 80307; 80320; 80329; 81001; 84132; 87086

== ENCOUNTER 2022-03-23 11:49 | Outpatient (CLI) | payer SELFPAY ==
--- NOTE | 2022-03-23 11:30 | XRAY Report ---
PROCEDURE: Wrist 3 View RT INDICATIONS: RIGHT WRIST PAIN TECHNIQUE: 3 views of the wrist were acquired. COMPARISON: None FINDINGS: Bones: Acute slightly comminuted and impacted distal radial fracture is seen with slight dorsal displ acement at fracture site. Old fracture of ulnar styloid tip is seen with well-corticated fragment. No other fracture or dislocation. No suspicious bony lesions. Scaphoid view: Scaphoid is grossly intact. Soft tissues: No suspicious soft tissue calcifications. IMPRESSION: Acute comminuted and impacted distal radial fracture as above. Old ulnar styloid tip fracture. Reviewed by: Hamzah Dominique MD on 03/23/2022 11:29 AM PST Approved by: Hamzah Dominique MD on 03/23/2022 11:29 AM PST Station ID: [id number]
== END 2022-03-23 11:50 | disposition home or self-care (01) ==
LOC: DI.S 11:49
PROVIDERS: ATTEND Physician Assistant Medical
DX: S52.501A Unspecified fracture of the lower end of right radius, initial encounter for closed fracture (principal); S52.611A Displaced fracture of right ulna styloid process, initial encounter for closed fracture

== ENCOUNTER 2023-09-27 07:00 | Outpatient (CLI) | payer OTHER ==
--- NOTE | 2023-09-27 15:30 | XRAY Report ---
PROCEDURE: Ribs w/PA Chest 3+V RT INDICATIONS: CONTUSION OF RIGHT FRONT WALL THORAX TECHNIQUE: 2 views of the ribs were acquired, along with a single view chest. COMPARISON: None. FINDINGS: Surgical changes and devices: None. Bones and chest wall: No fractures or dislocations. No suspicious bony lesions. Overlying soft tis sues appear unremarkable. Lungs and pleura: No pleural effusions or pneumothorax. Lungs appear clear. Mediastinum: Mediastinal contours appear normal. Heart size is normal. IMPRESSION: No displaced rib fracture or pneumothorax. Reviewed by: Theodore Reese MD on 09/27/2023 3:28 PM PDT Approved by: Theodore Reese MD on 09/27/2023 3:28 PM PDT Station ID: [id number]
--- NOTE | 2023-09-27 15:31 | XRAY Report ---
PROCEDURE: Shoulder 2+V LT INDICATIONS: LEFT SHOULDER CONTUSION TECHNIQUE: 3 views of the shoulder were acquired. COMPARISON: None. FINDINGS: Bones: Minimally displaced fracture through the greater tuberosity. Soft tissues: No suspicious soft tissue calcifications. The visualized lungs are within normal limi ts. IMPRESSION: Minimally displaced fracture through the left humerus greater tuberosity. Reviewed by: Theodore Reese MD on 09/27/2023 3:29 PM PDT Approved by: Theodore Reese MD on 09/27/2023 3:29 PM PDT Station ID: [id number]
--- NOTE | 2023-09-27 15:31 | XRAY Report ---
PROCEDURE: Elbow 3+V LT INDICATIONS: LEFT ELBOW CONTUSION TECHNIQUE: 3 views of the elbow were acquired. COMPARISON: None. FINDINGS: Bones: No fractures or dislocations. No suspicious bony lesions. Soft tissues: No effusion. No suspicious soft tissue calcifications or masses. IMPRESSION: No acute bony abnormality or significant joint effusion. Reviewed by: Theodore Reese MD on 09/27/2023 3:29 PM PDT Approved by: Theodore Reese MD on 09/27/2023 3:29 PM PDT Station ID: [id number]
== END 2023-09-27 23:59 | disposition home or self-care (01) ==
LOC: DI.S 07:00
PROVIDERS: ATTEND Physician Assistant Medical
DX: S42.252A Displaced fracture of greater tuberosity of left humerus, initial encounter for closed fracture (principal); S20.211A Contusion of right front wall of thorax, initial encounter; S50.02XA Contusion of left elbow, initial encounter

== ENCOUNTER 2023-10-10 09:43 | Outpatient (CLI) | payer OTHER ==
--- NOTE | 2023-10-10 11:17 | XRAY Report ---
PROCEDURE: Shoulder 2+V LT INDICATIONS: LEFT SHOULDER PAIN TECHNIQUE: 3 views of the shoulder were acquired. COMPARISON: 09/27/2023. FINDINGS: Bones: Redemonstration of greater tuberosity fracture, similar in appearance compared to prior.. No suspicious bony lesions. Visualized ribs appear intact. Soft tissues: No suspicious soft tissue calcifications. The visualized lungs are within normal limi ts. IMPRESSION: Similar appearance of greater tuberosity fracture compared to prior. Reviewed by: Merlin Jernigan MD on 10/10/2023 11:16 AM PDT Approved by: Merlin Jernigan MD on 10/10/2023 11:16 AM PDT Station ID: [id number]
== END 2023-10-10 09:44 | disposition home or self-care (01) ==
LOC: DI 09:43
PROVIDERS: ATTEND Physician Assistant Medical
DX: S42.92XD Fracture of left shoulder girdle, part unspecified, subsequent encounter for fracture with routine healing (principal)

== ENCOUNTER 2023-11-14 08:52 | Outpatient (CLI) | payer OTHER ==
--- NOTE | 2023-11-15 10:49 | XRAY Report ---
PROCEDURE: Shoulder 2+V LT INDICATIONS: NON DISPLACED FX OF UPPER END OF LEFT HUMERUS TECHNIQUE: 5 views of the shoulder were acquired. COMPARISON: Shoulder x-ray dated 09/27/2023. FINDINGS: Bones: Displaced fracture of the greater tuberosity again identified with mild interval callus forma tion. Impaction of the humeral head is difficult to completely rule out Soft tissues: Mild soft tissue swelling IMPRESSION: Displaced fracture of the greater tuberosity again seen with impaction difficult to completely rule o ut Reviewed by: Pankaj Zee MD on 11/15/2023 10:47 AM PDT Approved by: Pankaj Zee MD on 11/15/2023 10:47 AM PDT Station ID: [id number]
== END 2023-11-14 08:53 | disposition home or self-care (01) ==
LOC: DI 08:52
PROVIDERS: ATTEND Orthopaedic Surgery
DX: S42.295D Other nondisplaced fracture of upper end of left humerus, subsequent encounter for fracture with routine healing (principal)